=== PATIENT | male | born 1960 | race Caucasian/White ===

== ENCOUNTER 2022-10-10 07:36 | Day surgery (SDC) | payer BC ==
[~2022-10-10] VITALS: Ht 172.7 cm; Wt 76.5 kg
[2022-10-10] VITALS (8 sets, daily range): BP systolic 99–115; BP diastolic 48–68
[~2022-10-10 07:36] MED LIST: BISA-77 PO; CANN100S INH; FOLI1TAB27 PO; LACT10SO67 PO; MAGN400T56 PO; METO-395 PO; MILK175T PO; MULT-1085 PO; RIFA550T PO; THIA100T70 PO
[2022-10-10] MEDS ORDERED: albumin 25% 100mL bottle x 1 IV PRN (07:55)
[2022-10-10] MEDS ORDERED: normal saline 1000ml 1,000 ML IV PRN (08:00)
[2022-10-10] MEDS ORDERED: FURO20TA4 PO (08:03)
== END 2022-10-10 11:20 | disposition home or self-care (01) ==
LOC: SSTAY O 07:36
PROVIDERS: ATTEND Radiology Vascular & Interventional Radiology
DX: K70.31 Alcoholic cirrhosis of liver with ascites (principal); Z98.890 Other specified postprocedural states; Z79.899 Other long term (current) drug therapy
CPT/HCPCS: 49083; C1729; J3490; P9047; A6258; A6449

== ENCOUNTER 2022-10-31 05:58 | Day surgery (SDC) | payer BC ==
[~2022-10-31] VITALS: Ht 172.7 cm; Wt 80.6 kg
[2022-10-31] VITALS (9 sets, daily range): BP systolic 103–125; BP diastolic 56–70
[~2022-10-31 05:58] MED LIST changes: +FURO20TA4 PO
[2022-10-31] MEDS ORDERED: LIDOcaine 1% 30ml preserv. free vial SQ PRN (06:15)
[2022-10-31] MEDS ORDERED: POTA-366 PO (06:17)
[2022-10-31] MEDS: albumin 25% 100mL bottle x 1 IV PRN ×2 (08:34→09:30)
== END 2022-10-31 10:35 | disposition home or self-care (01) ==
LOC: SSTAY O 05:58
PROVIDERS: ATTEND Radiology Vascular & Interventional Radiology
DX: K70.31 Alcoholic cirrhosis of liver with ascites (principal); E46 Unspecified protein-calorie malnutrition; Z98.890 Other specified postprocedural states; Z79.899 Other long term (current) drug therapy
CPT/HCPCS: 49083; C1729; J3490; P9047; A6258; A6449

== ENCOUNTER 2022-12-16 07:10 | Day surgery (SDC) | payer BC ==
[~2022-12-16] VITALS: Ht 172.7 cm; Wt 81.8 kg
[2022-12-16] VITALS (10 sets, daily range): BP systolic 124–148; BP diastolic 66–85; PULSE 80–94; RESP 12–15; TEMP 98.1; O2SAT 97–100
[~2022-12-16 07:10] MED LIST changes: -BISA-77 PO; -MILK175T PO; -MULT-1085 PO; +POTA-366 PO
[2022-12-16] MEDS ORDERED: LIDOcaine 1%/PF 5ML 10 MG/ML VIAL SQ ONE (07:30)
[2022-12-16] MEDS ORDERED: EPLE25TA10 PO (07:38)
[2022-12-16] MEDS: albumin 25% 100mL bottle x 1 IV PRN ×3 (08:26→09:32)
== END 2022-12-16 10:15 | disposition home or self-care (01) ==
LOC: SSTAY O 07:10
PROVIDERS: ATTEND Radiology Vascular & Interventional Radiology
DX: K70.31 Alcoholic cirrhosis of liver with ascites (principal); Z98.890 Other specified postprocedural states; Z79.899 Other long term (current) drug therapy
CPT/HCPCS: 49083; C1729; J3490; P9047; A6258; A6449

== ENCOUNTER 2024-01-15 08:56 | Outpatient (CLI) | payer MEDICARE, OTHER ==
[~2024-01-15 08:56] MED LIST changes: +EPLE25TA10 PO; -FOLI1TAB27 PO; -MAGN400T56 PO; -METO-395 PO; +TEST200V33 IM; -THIA100T70 PO
== END 2024-01-15 23:59 | disposition home or self-care (01) ==
LOC: 64 CT 08:56
PROVIDERS: ATTEND Podiatrist Foot & Ankle Surgery
DX: M19.072 Primary osteoarthritis, left ankle and foot (principal); M25.472 Effusion, left ankle; M25.372 Other instability, left ankle; M25.572 Pain in left ankle and joints of left foot
CPT/HCPCS: 73700